=== PATIENT | male | born 1985 | race Caucasian/White ===

== ENCOUNTER 2018-11-20 16:09 | Emergency (ER) | payer MEDICAID ==
[~2018-11-20] VITALS: Ht 172.7 cm; Wt 68.0 kg
[2018-11-20 16:27] VITALS: BP 116/73
--- NOTE | 2018-11-20 16:30 | NUR ---
PT SENT TO LOBBY TO WAIT FOR ED BED.
--- NOTE | 2018-11-20 16:55 | NUR ---
PATIENT AMBULATED TO ER BED 11.
--- NOTE | 2018-11-20 17:00 | NUR ---
33Y/M BIB SELF WITH C/O VOMITING SINCE SUNDAY AND BILATERAL FLANK PAIN SINCE LAST NIGHT; PT STATES HE RELAPSED ON IV HEROIN AND METH ON SUNDAY. PT IS AAOX4, VSS AT THIS YULISSA, BED DOWN, BEDRAIL UP X 1, ER MD AWARE AND NOTIFIED OF PT STATUS. HX DENIES
[2018-11-20 18:07] LABS: BASOPHILS % (AUTO) 0.1 % (0.0-2.0); EOSINOPHILS % (AUTO) 0.1 % (0.0-4.0); HEMATOCRIT 53.4 % (36-52); HEMOGLOBIN 18.3 g/dL (12.0-18.0); LYMPHOCYTES # (AUTO) 0.8 K/uL (2.0-11.5); LYMPHOCYTES % (AUTO) 4.9 % (20.5-51.1); MEAN CORPUSCULAR HEMOGLOBIN 30 pg (27-31); MEAN CORPUSCULAR HGB CONC 34 g/dL (33-37); MEAN CORPUSCULAR VOLUME 88.2 fL (80-94); MONOCYTES # (AUTO) 1.1 K/uL (0.8-1.0); MONOCYTES % (AUTO) 6.9 % (1.7-9.3); NEUTROPHILS # (AUTO) 13.6 K/uL (1.8-7.7); PLATELET COUNT (AUTO) 286 K/uL (140-450); RED BLOOD CELL COUNT(AUTO) 6.05 MIL/uL (4.20-6.10); RED CELL DISTRIBUTION WIDTH 14.3 % (11.6-13.7); WHITE BLOOD COUNT (AUTO) 15.5 K/uL (4.8-10.8)
--- NOTE | 2018-11-20 19:05 | NUR ---
REPORT RECIEVED FROM ZOIE MORE.
[2018-11-20 19:10] LABS: APPEARANCE,URINE CLEAR (CLEAR); BILIRUBIN,URINE 3+ (NEGATIVE); BLOOD, URINE TRACE-I (NEGATIVE); COLOR,URINE YELLOW (YELLOW); LEUKOCYTE ESTERASE ,URINE TRACE (NEGATIVE); NITRITE, URINE NEGATIVE (NEGATIVE); UGLUCOSE NEGATIVE (NEGATIVE)
[2018-11-20 19:19] LABS: ANION GAP 15.5 (8-16); CARBON DIOXIDE 31.3 mmol/L (21-32); CREATININE 1.7 mg/dL (0.7-1.3); POTASSIUM 3.8 mmol/L (3.5-5.1)
[2018-11-20 19:25] LABS: TOTAL BILIRUBIN 0.6 mg/dL (0.0-1.0)
[2018-11-20] MEDS ORDERED: KETOROLAC 30 MG/ML VIAL IVP ONE (19:30)
[2018-11-20] MEDS ORDERED: NACL 0.9% 1,000 ML IV ONE (19:30)
[2018-11-20] MEDS ORDERED: ONDANSETRON 4 MG/2 ML VIAL IVP ONE (19:30)
[2018-11-20 19:39] LABS: RBC,URINE 11-20 (MOD) /HPF (0-5)
[2018-11-20 19:40] LABS: HYALINE CASTS, URINE 0-10 /LPF (None Seen); WBC,URINE 16-25 (MOD) /HPF (0-5)
[2018-11-20 19:41] LABS: COARSE GRANULAR CASTS,URINE 0-10 /LPF (None Seen)
[2018-11-20] MEDS ORDERED: cefTRIAXone 1,000 MG in LIDOCAINE MPF 1% - 5 mL VIAL 2.1 ML IM ONE (20:30)
[2018-11-20 20:44] VITALS: BP 118/71
--- NOTE | 2018-11-20 20:44 | NUR ---
DISCHARGE INSTRUCTIONS GIVEN. PT STATES FEELING BEETER. NO N/V. VSS. 0/10 PAIN. A&OX4. GIVEN RX FOR CIPRO. SIDE EFFECTS EXPLAINED. INSTRUCTED WHEN TO F/U WITH ER AND PCP. PT VERBALLIZED UNDERSTANDING OF DC INSTRUCTION. ALL QUESTIONS ANSWERED.
== END 2018-11-20 20:44 | disposition home or self-care (01) ==
LOC: MED 16:09
DX: N39.0 Urinary tract infection, site not specified (principal); N17.9 Acute kidney failure, unspecified; K56.7 Ileus, unspecified; K59.00 Constipation, unspecified; F11.10 Opioid abuse, uncomplicated; F15.10 Other stimulant abuse, uncomplicated; F17.200 Nicotine dependence, unspecified, uncomplicated; Z98.890 Other specified postprocedural states
CPT/HCPCS: 36415; 74176; 80053; 81001; 83690; 85025; 87086; 96361; 96372; 96374; 96375; 99284; J0696; J1885; J2001; J2405; J7030